=== PATIENT | female | born 1955 | race Caucasian/White ===

== ENCOUNTER 2018-02-18 18:43 | Emergency (ER) | payer OTHER ==
[~2018-02-18] VITALS: Ht 152.4 cm; Wt 52.2 kg
== END 2018-02-18 20:48 | disposition home or self-care (01) ==
LOC: ER 18:43
DX: S92.412A Displaced fracture of proximal phalanx of left great toe, initial encounter for closed fracture (principal); W18.09XA Striking against other object with subsequent fall, initial encounter; Y93.89 Activity, other specified; Y92.098 Other place in other non-institutional residence as the place of occurrence of the external cause; Y99.8 Other external cause status

== ENCOUNTER 2019-04-21 17:33 | Emergency (ER) | payer OTHER ==
[~2019-04-21] VITALS: Ht 152.4 cm; Wt 51.7 kg
== END 2019-04-21 20:28 | disposition home or self-care (01) ==
LOC: ER 17:33
DX: J02.8 Acute pharyngitis due to other specified organisms (principal); B34.9 Viral infection, unspecified